=== PATIENT | female | born 1980 | race Caucasian/White ===

== ENCOUNTER 2020-03-18 09:37 | Emergency (ER) | payer SELFPAY ==
[2020-03-18 11:08] VITALS: TEMP 99
--- NOTE | 2020-03-18 12:00 | ED.PDOC ---
History of Present Illness - General Chief Complaint: Problem Stated Complaint: kidney pain Time Seen by Provider: 03/18/20 11:01 Source: patient, RN notes reviewed, Vital Signs reviewed Exam Limitations: no limitations - History of Present Illness Initial Comments: Patient is a 40-year-old white female who presents with complaints of worsening low back pain. Patient has had dysuria for about a week and has been treating herself with Azo. The back pain started yesterday and is worsening. It is throbbing in nature. It is worse with movement. Nothing makes it better. Patient's had intermittent fevers and chills. These fever chills are subjective. There is no radiation of the pain. Timing/Duration: 1 week, getting worse Severity: severe Improving Factors: nothing Worsening Factors: movement Associated Symptoms: fever/chills, loss of appetite, malaise, weakness Allergies/Adverse Reactions: Allergies NO KNOWN ALLERGY Allergy (Verified 03/18/20 11:13) Home Medications: Ambulatory Orders Cefdinir 300 mg PO BID #14 capsule 03/18/20 Review of Systems - Review of Systems Constitutional: States: see HPI, chills, fever, malaise, weakness EENTM: States: no symptoms reported, eye pain, blurred vision, double vision Respiratory: States: no symptoms reported. Denies: cough, short of breath, stridor Cardiology: States: no symptoms reported. Denies: chest pain, palpitations, syncope Gastrointestinal/Abdominal: States: see HPI, nausea. Denies: abdominal pain, diarrhea, vomiting Musculoskeletal: States: see HPI, back pain. Denies: joint pain, joint swelling, neck pain Skin: States: no symptoms reported. Denies: change in color, rash Neurological: States: see HPI, weakness. Denies: headache, tingling, tremors Endocrine: States: no symptoms reported. Denies: increased hunger, increased thirst, increased urine Hematologic/Lymphatic: States: no symptoms reported. Denies: blood clots, easy bleeding All other Systems: Reviewed and Negative Past Medical History (General) - Patient Medical History Hx Stroke: No Hx Congestive Heart Failure: No Hx Diabetes: No - Vaccination History Hx Influenza Vaccination: No - Social History Hx Tobacco Use: Yes - Female History Patient is a Female of Child Bearing Age (10 -59 yrs old): Yes Family Medical History - Family History Mother Family History: Unknown Living Status: Unknown Physical Exam - Physical Exam General Appearance: Alert, Anxious, Restless, Well Developed, Well Groomed, Well Hydrated, Well Nourished Eye Exam: bilateral normal Ears, Nose, Throat: hearing grossly normal, normal ENT inspection, normal pharynx Neck: non-tender, full range of motion, supple, normal inspection Respiratory: chest non-tender, lungs clear, normal breath sounds, no respiratory distress, no accessory muscle use Cardiovascular/Chest: normal peripheral pulses, regular rate, rhythm, no edema, no gallop, no JVD, no murmur Peripheral Pulses: radial,right: 2+, radial,left: 2+ Gastrointestinal/Abdominal: normal bowel sounds, soft, tenderness - suprapubic Back Exam: no vertebral tenderness, CVA tenderness (R), CVA tenderness (L) Extremity: normal range of motion, non-tender, normal inspection, no pedal edema, no calf tenderness 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 03/18/20 12:02 Patient with a UTI that and now believe is moved to be, pyelonephritis. We will treat patient with cefdinir x7 days. I discussed this plan of care with the patient and she voices understanding and agreement. Patient is given strong warning signs to return and voices understanding. Tramaine Avendano M.D. #[id number] - Results/Orders Results/Orders: 03/18/20 11:15 URINE CULTURE W/COLONY COUNT Stat Laboratory Results - last 24 hr 03/18/20 11:15 Urine Color Yellow Urine Appearance Clear Urine pH 6.5 Ur Specific [place] 1.010 Urine Protein Negative Urine Glucose (UA) Negative Urine Ketones Negative Urine Blood Trace-intact H Urine Nitrite Positive H Urine Bilirubin Negative Urine Urobilinogen 0.2 Ur Leukocyte Esterase Moderate H Urine RBC 0 Urine WBC Tntc H Ur Epithelial Cells 1-3 Urine Bacteria 1+ Vital Signs 03/18/20 11:05 Temperature 99 F Pulse Rate [ 92 H Left Brachial] Respiratory 20 Rate Blood Pressure 132/78 [Left Arm] O2 Sat by Pulse 98 Oximetry Departure - Departure Clinical Impression: Pyelonephritis, Urinary tract infection Time of Disposition: 12:03 Disposition: Discharge to Home or Self Care Condition: Good Departure Forms: ED Discharge - Pt. Copy, Patient Portal Self Enrollment Instructions: Urinary Tract Infection, Adult (DC) Diet: resume usual diet Activity: increase activity as tolerated Prescriptions: Cefdinir 300 mg PO BID #14 capsule Home Medications: Ambulatory Orders Cefdinir 300 mg PO BID #14 capsule 03/18/20
[2020-03-18 12:20] VITALS: BP 122/69; O2SAT 97
== END 2020-03-18 12:30 | disposition home or self-care (01) ==
LOC: ER 09:37
DX: N12 Tubulo-interstitial nephritis, not specified as acute or chronic (principal); Z87.891 Personal history of nicotine dependence